=== PATIENT | male | born 1970 | race Caucasian/White ===

== ENCOUNTER 2019-10-25 15:24 | Emergency (ER) | payer BC ==
[~2019-10-25] VITALS: Ht 182.9 cm; Wt 81.7 kg
[2019-10-25] MEDS ORDERED: PREGABALIN100 MG PO (15:45)
[2019-10-25] MEDS ORDERED: Norco 7.5-3251 EACH PO (17:30)
[2019-10-25] MEDS ORDERED: CEPH500 PO (17:30)
== END 2019-10-25 17:50 | disposition home or self-care (01) ==
LOC: ER 15:24
DX: S66.121A Laceration of flexor muscle, fascia and tendon of left index finger at wrist and hand level, initial encounter (principal); Z23 Encounter for immunization; W27.8XXA Contact with other nonpowered hand tool, initial encounter
CPT/HCPCS: 12032; 73130; 90471; 90714; 96365-59; 96375-59; 99283-25; J0690; J1170; L3917

== ENCOUNTER → 2021-04-20 | Outpatient (CLI) | payer BC ==
[~2021-04-20] MED LIST: CEPH500 PO; Norco 7.5-3251 EACH PO; PREGABALIN100 MG PO
[2021-04-20 08:31] LABS: BASOPHILS ABSOLUTE AUTO 0.08 K/mm3 (0.00-0.23); BASOPHILS PERCENT AUTO 1 % (0-2); EOSINOPHILS ABSOLUTE AUTO 0.44 K/mm3 (0.00-0.68); EOSINOPHILS PERCENT AUTO 5 % (0-6); Hematocrit 41.7 % (37.0-53.0); Hemoglobin 14.4 g/dL (13.5-17.5); IMMATURE GRAN ABSOLUTE AUTO 0.03 K/mm3 (0.00-0.10); IMMATURE GRAN PERCENT AUTO 0 % (0-1); LYMPHOCYTES ABSOLUTE AUTO 1.51 K/mm3 (0.84-5.20); LYMPHOCYTES PERCENT AUTO 18 % (21-46); MONOCYTES ABSOLUTE AUTO 0.67 K/mm3 (0.16-1.47); MONOCYTES PERCENT AUTO 8 % (4-13); Mean Corpuscular HGB 31.6 pg (26.0-34.0); Mean Corpuscular HGB Conc 34.5 g/dL (31.5-36.5); Mean Corpuscular Volume 92 fL (80-100); NEUTROPHILS ABSOLUTE AUTO 5.62 K/mm3 (1.96-9.15); NEUTROPHILS PERCENT AUTO 67 % (41-73); Platelet Count 238 K/mm3 (150-400); RDW Coefficient Variation 12.2 % (11.7-14.2); RDW Standard Deviation 40.8 fL (35.1-46.3); Red Blood Cell Count 4.55 M/mm3 (4.30-5.90); White Blood Cell Count 8.35 K/mm3 (4.00-11.30)
[2021-04-20 08:39] LABS: Alanine Aminotransfer (ALT/SGP 41 U/L (12-78); Albumin, Blood 4.1 g/dL (3.4-5.0); Albumin/Globulin Ratio 1.3 (0.8-1.8); Alk Phos 113 U/L (40-126); Anion Gap 10 mmol/L (6-16); Aspartate Aminotrans (AST/SGOT 21 U/L (12-37); Bilirubin, Total 0.4 mg/dL (0.1-1.0); Blood Urea Nitrogen 14 mg/dL (8-24); Bun/Creatinine Ratio 17.3 (12.0-20.0); CO2, Blood 28 mmol/L (21-32); Calcium, Blood 9.3 mg/dL (8.5-10.1); Chloride, Blood 104 mmol/L (98-108); Creatinine, Blood 0.81 mg/dL (0.60-1.20); Globulin, Blood 3.1 g/dL (2.2-4.0); Glomerular Filtration Rate >60 (60-); Glucose, Blood 92 mg/dL (70-99); Magnesium, Blood 1.9 mg/dL (1.6-2.4); Potassium, Blood 4.4 mmol/L (3.5-5.5); Sodium, Blood 142 mmol/L (136-145); Total Protein, Blood 7.2 g/dL (6.4-8.2)
[2021-04-20 09:24] LABS: CPK Creatine Kinase 67 U/L (39-308)
[2021-04-20 09:29] LABS: Creatine Kinase MB <1.0 ng/mL (0.0-3.6); Creatine Kinase MB Index Unable to Calculate (0.0-4.0)
[2021-04-22 13:08] LABS: ANA DIRECT Negative (Negative); ANTI-DNA (DS) AB QN 7 IU/mL (0-9); RNP ANTIBODIES 0.2 AI (0.0-0.9); SJOGREN'S ANTI-SS-A <0.2 AI (0.0-0.9); SJOGREN'S ANTI-SS-B <0.2 AI (0.0-0.9); SMITH ANTIBODIES 0.4 AI (0.0-0.9)
== END | disposition home or self-care (01) ==
LOC: LAB SHORT 08:18
PROVIDERS: Physician Assistant
DX: M25.551 Pain in right hip (principal)
CPT/HCPCS: 80053; 82550; 82553; 83735; 85025; 85651; 86225; 86235

== ENCOUNTER → 2021-06-09 | Outpatient (CLI) | payer BC | END | disposition home or self-care (01) | LOC: LAB SHORT 11:20 | DX: D22.5 Melanocytic nevi of trunk (principal) | CPT/HCPCS: 88305 ==

== ENCOUNTER → 2021-09-07 | Outpatient (CLI) | payer BC ==
[2021-09-07 14:44] LABS: Calcium, Urine 21.2 mg/dL (< 17.5)
[2021-09-07 14:51] LABS: Creatinine Urine 99.5 mg/dL (27.00-270.00)
== END | disposition home or self-care (01) ==
LOC: LAB 09:26 → LAB SHORT 09:26
PROVIDERS: Internal Medicine Endocrinology, Diabetes & Metabolism
DX: M81.0 Age-related osteoporosis without current pathological fracture (principal)
CPT/HCPCS: 81050; 82340; 82570

== ENCOUNTER → 2022-08-14 | Outpatient (CLI) | payer BC | END | disposition home or self-care (01) | LOC: LAB 15:35 → LAB SHORT 15:35 | DX: N50.819 Testicular pain, unspecified (principal) | CPT/HCPCS: 87086 ==

== ENCOUNTER 2022-11-21 13:36 | Observation (INO) | payer BC ==
[~2022-11-21] VITALS: Ht 182.9 cm; Wt 84.0 kg
[2022-11-21 14:11] LABS: BASOPHILS ABSOLUTE AUTO 0.07 K/mm3 (0.00-0.23); BASOPHILS PERCENT AUTO 1 % (0-2); EOSINOPHILS ABSOLUTE AUTO 0.28 K/mm3 (0.00-0.68); EOSINOPHILS PERCENT AUTO 4 % (0-6); Hematocrit 40.1 % (37.0-53.0); Hemoglobin 13.9 g/dL (13.5-17.5); IMMATURE GRAN ABSOLUTE AUTO 0.07 K/mm3 (0.00-0.10); IMMATURE GRAN PERCENT AUTO 1 % (0-1); LYMPHOCYTES ABSOLUTE AUTO 1.23 K/mm3 (0.84-5.20); LYMPHOCYTES PERCENT AUTO 16 % (21-46); MONOCYTES ABSOLUTE AUTO 0.48 K/mm3 (0.16-1.47); MONOCYTES PERCENT AUTO 6 % (4-13); Mean Corpuscular HGB 31.5 pg (26.0-34.0); Mean Corpuscular HGB Conc 34.7 g/dL (31.5-36.5); Mean Corpuscular Volume 91 fL (80-100); Mean Platelet Volume 11.7 fL (9.1-12.4); NEUTROPHILS ABSOLUTE AUTO 5.58 K/mm3 (1.96-9.15); NEUTROPHILS PERCENT AUTO 72 % (41-73); Platelet Count 251 K/mm3 (150-400); RDW Coefficient Variation 11.7 % (11.7-14.2); RDW Standard Deviation 38.8 fL (35.1-46.3); Red Blood Cell Count 4.41 M/mm3 (4.30-5.90); White Blood Cell Count 7.71 K/mm3 (4.00-11.30)
[2022-11-21 14:27] LABS: Albumin, Blood 3.5 g/dL (3.4-5.0); Bilirubin, Total 0.4 mg/dL (0.1-1.0); Bun/Creatinine Ratio 8.3 (12.0-20.0); Calcium, Blood 8.7 mg/dL (8.5-10.1); Creatinine, Blood 1.21 mg/dL (0.60-1.20); Globulin, Blood 3.4 g/dL (2.2-4.0); Potassium, Blood 4.2 mmol/L (3.5-5.5); Total Protein, Blood 6.9 g/dL (6.4-8.2)
[2022-11-21] MEDS ORDERED: MIRAPEX ER0.75 MG PO (14:28)
[2022-11-21 18:16] VITALS: BP 130/83
--- NOTE | 2022-11-21 18:27 | NUR ---
ADMISSION: PT ADMIT TO MEDICAL FLOOR @1805 INDEPENDENTLY. PT HAS ONE BAG IV NS RUNNING @125/HR. PT VERY PLEASANT AND COOPERATIVE WITH CARE. NO ACUTE ISSUES BESIDES GI ISSUES. LUNGS CLEAR. VSS. IV IN LAC RUNNING W/O COMPLICATIONS. PT CURRENTLY HAS REGULAR DIET IN PLACE. WILL CALL HOSPITALIST TO VERIFY THIS ORDER DUE TO POSSIBLE SCOPE TOMORROW. PT INDEPENDENT IN ROOM. NO C/O PAIN OR N/V. CALL LIGHT IN REACH. WILL CONTINUE TO MONITOR.
--- NOTE | 2022-11-21 22:29 | NUR ---
PT REFUSES FURTHER IV FLUID INFUSION, CITING INCONVENIENCE OF CONSTANTLY BEING UP TO USE RESTROOM AND HAVING TO DEAL WITH IT. DISCUSSION AND EDUCATION REGARDING NEED FOR FLUID ADMINISTRATION. PT ELECTS TO TAKE PO FLUIDS AND PROMISES TO UPKEEP FLUID INTAKE OVER COURSE OF NIGHT. CONTINUED TO REFUSE IV FLUID ADMINISTRATION. WILL DC, PUSH PO FLUIDS, AND CONTINUE TO MONITOR.
[2022-11-22] VITALS (28 sets, daily range): BP systolic 89–137; BP diastolic 46–80
[2022-11-22 00:04] LABS: Campylobacter Sp Not Detected (NOT DETECT)
[2022-11-22 00:05] LABS: Adenovirus F 40/41 Not Detected (NOT DETECT); Astrovirus Not Detected (NOT DETECT); Cryptosporidium Not Detected (NOT DETECT); Cyclospora Cayetanensis Not Detected (NOT DETECT); E. Coli O157 Not Detected (NOT DETECT); Entamoeba Histolytica Not Detected (NOT DETECT); Enteroaggregative E. coli-EAEC Not Detected (NOT DETECT); Enteropathogenic E. coli-EPEC Not Detected (NOT DETECT); Enterotoxigenic E. coli-ETEC Not Detected (NOT DETECT); Giardia Lamblia Not Detected (NOT DETECT); Norovirus GI/GII Not Detected (NOT DETECT); Plesiomonas Shigelloides Not Detected (NOT DETECT); Rotavirus A Not Detected (NOT DETECT); Salmonella Sp Not Detected (NOT DETECT); Sapovirus Not Detected (NOT DETECT); Shiga Toxin-prod E. coli-STEC Not Detected (NOT DETECT); Shigella/Enteroin E. coli-EIEC Not Detected (NOT DETECT); Vibrio Cholerae Not Detected (NOT DETECT); Vibrio Sp Not Detected (NOT DETECT); Yersinia Enterocolitica Not Detected (NOT DETECT)
--- NOTE | 2022-11-22 03:46 | NUR ---
SHIFT SUMMARY. PT IS AOX4, PLEASANT, COOPERATIVE WITH CARE, INDEPENDENT WITHIN ROOM. PT HAS HAD VERY GOOD PO FLUID INTAKE, MORE THAN 64 OZ OF WATER NOT INCLUDING APPLE JUICE WITH MIRALAX. NO BM SINCE TAKING MIRALAX PER PT BUT HAS BEEN HAVING FREQUENT URINATION. NO COMPLAINTS OF PAIN. EDUCATED ON LAXATIVES, NEED FOR PO FLUID INTAKE, INDICATION FOR COLONOSCOPY, ETC. CALLS APPROPRIATELY. BED LOCKED IN LOWEST POSITION. CALL LIGHT LEFT WITHIN REACH.
[2022-11-22 05:31] LABS: International Normalized Ratio 1.07; Prothrombin Time Results 11.2 Sec (9.7-11.5)
[2022-11-22 06:01] LABS: Albumin, Blood 3.6 g/dL (3.4-5.0); Albumin/Globulin Ratio 1.1 (0.8-1.8); Bilirubin, Total 0.5 mg/dL (0.1-1.0); Bun/Creatinine Ratio 9.7 (12.0-20.0); Calcium, Blood 9.2 mg/dL (8.5-10.1); Creatinine, Blood 0.93 mg/dL (0.60-1.20); Globulin, Blood 3.4 g/dL (2.2-4.0); Potassium, Blood 4.5 mmol/L (3.5-5.5)
--- NOTE | 2022-11-22 09:56 | NUR ---
Pt. is sitting up in bed and welcomes my visit. Pt. verbalized that he was being prepped for a colonoscopy. Nurse arrived to take him to procedure. pt. verbalized gratitude for the brief spiritual care visit.
--- NOTE | 2022-11-22 15:31 | NUR ---
YAW FROM DAY SURGERY CALLED @1525 TO CHECK ON PT BOWEL PREP AND ASSESS COLOR AND CLARITY OF BM. PER DAY SURGERY, LIKELY BE UP TO TRANSPORT WITHIN THE HOUR.
--- NOTE | 2022-11-22 16:42 | NUR ---
18G IV SITE LAC PATENT.
--- NOTE | 2022-11-22 17:04 | NUR ---
SHIFT SUMMARY: PT A&O X4. PT PLEASANT AND COOPERATIVE WITH ALL CARE. PT FINISHED BOWEL PREP AROUND 1030 THIS AM WITH FINAL BM SHOWING YELLOW/LIGHT GREEN IN COLOR WITH NO SOLID PARTICLES PRESENT. PT DOWN FOR SURGERY @1630. PT INDEPENDENT IN ROOM W/NO COMPLAINTS OF N/V. SMALL AMOUNT OF ABD PAIN THIS AM PRIOR TO BOWEL PREP. SCHEDULED ZOFRAN GIVEN 20 MINUTES PRIOR TO PREP.
--- NOTE | 2022-11-22 17:07 | NUR ---
PT ACCESSED RECORDS VIA PERSONAL CELL PHONE. PT CONCERNED DUE TO FACT THAT SOME PARTS OF A NOTE UPON ARRIVAL IN ER WERE NOT ACCURATE. PT STATED HE WAS HAVING VERY FREQUENT BM'S, NOT URINATION. PT ALSO STATED HE STARTED HAVING BLOOD IN STOOL 2 MONTHS AGO BUT BLOOD STARTED TO BECOME WORSE AND MORE SEVERE IN THE PAST FEW DAYS. STATED TO PT THIS RN WOULD MAKE ACCURATE NOTE.
--- NOTE | 2022-11-22 17:32 | NUR ---
11/22/22 1732 Kary Isaac HISTORY, CHART, MEDICATIONS AND ALLERGIES REVIEWED BEFORE START OF PROCEDURE. PATIENT CONFIRMS NPO STATUS AND AGREES WITH SCHEDULED PROCEDURE. 3-LEAD EKG REVIEWED WITH PHYSICIAN PRIOR TO START OF PROCEDURE. MONITOR INTACT WITH CONTINUOUS PULSE OXIMETRY,CAPNOGRAPHY, 3-LEAD EKG, INTERMITTENT BP. SUPPLEMENTAL O2 TO BE TITRATED THROUGHOUT PROCEDURE TO MAINTAIN O2 SATURATION ABOVE 90%. PATIENT DETERMINED TO BE ASA APPROPRIATE FOR PROPOFOL SEDATION PRIOR TO START OF PROCEDURE BY DR. CHI.
[2022-11-22 21:18] LABS: Campylobacter Sp Not Detected (NOT DETECT); Enteroaggregative E. coli-EAEC Not Detected (NOT DETECT); Enteropathogenic E. coli-EPEC Not Detected (NOT DETECT); Enterotoxigenic E. coli-ETEC Not Detected (NOT DETECT); Plesiomonas Shigelloides Not Detected (NOT DETECT); Salmonella Sp Not Detected (NOT DETECT); Vibrio Cholerae Not Detected (NOT DETECT); Vibrio Sp Not Detected (NOT DETECT); Yersinia Enterocolitica Not Detected (NOT DETECT)
[2022-11-22 21:19] LABS: Adenovirus F 40/41 Not Detected (NOT DETECT); Astrovirus Not Detected (NOT DETECT); Cryptosporidium Not Detected (NOT DETECT); Cyclospora Cayetanensis Not Detected (NOT DETECT); E. Coli O157 Not Detected (NOT DETECT); Entamoeba Histolytica Not Detected (NOT DETECT); Giardia Lamblia Not Detected (NOT DETECT); Norovirus GI/GII Not Detected (NOT DETECT); Rotavirus A Not Detected (NOT DETECT); Sapovirus Not Detected (NOT DETECT); Shiga Toxin-prod E. coli-STEC Not Detected (NOT DETECT); Shigella/Enteroin E. coli-EIEC Not Detected (NOT DETECT)
== END 2022-11-22 21:38 | disposition home or self-care (01) ==
LOC: ER 13:36 → MEDS 13:37
PROVIDERS: Emergency Medicine; Internal Medicine Gastroenterology; ADMIT Hospitalist
PROC: 0DBM8ZX Excision of Descending Colon, Via Natural or Artificial Opening Endoscopic, Diagnostic (ICD-10-PCS; principal; 2022-11-21)
PROC: 0DBK8ZX Excision of Ascending Colon, Via Natural or Artificial Opening Endoscopic, Diagnostic (ICD-10-PCS; principal; 2022-11-21)
PROC: 0DBN8ZX Excision of Sigmoid Colon, Via Natural or Artificial Opening Endoscopic, Diagnostic (ICD-10-PCS; principal; 2022-11-21)
PROC: 0DBP8ZX Excision of Rectum, Via Natural or Artificial Opening Endoscopic, Diagnostic (ICD-10-PCS; principal; 2022-11-21)
PROC: 0DBL8ZX Excision of Transverse Colon, Via Natural or Artificial Opening Endoscopic, Diagnostic (ICD-10-PCS; principal; 2022-11-21)
PROC: 0DBH8ZX Excision of Cecum, Via Natural or Artificial Opening Endoscopic, Diagnostic (ICD-10-PCS; principal; 2022-11-21)
DX: K51.50 Left sided colitis without complications (principal); K64.4 Residual hemorrhoidal skin tags; G25.81 Restless legs syndrome; M79.7 Fibromyalgia; E86.0 Dehydration; M81.0 Age-related osteoporosis without current pathological fracture
CPT/HCPCS: 36415; 80053; 83993; 85025; 85610; 86140; 86850; 86900; 86901; 87015; 87045; 87046; 87177; 87205; 87209; 87507; 87899; 88305; 96374; 99285; A9270; G0378; J2250; J2405; J2704; J7030; J7120

== ENCOUNTER → 2022-11-28 | Outpatient (CLI) | payer BC ==
[~2022-11-28] MED LIST changes: +MIRAPEX ER0.75 MG PO
== END | disposition home or self-care (01) ==
LOC: LAB 05:40 → LAB SHORT 05:40
DX: K51.50 Left sided colitis without complications (principal)
CPT/HCPCS: 83993

== ENCOUNTER 2023-05-10 08:05 | Day surgery (SDC) | payer BC ==
[~2023-05-10] VITALS: Ht 182.9 cm; Wt 81.5 kg
[2023-05-10] MEDS ORDERED: APRISO0.375 GM (08:45)
[2023-05-10] MEDS ORDERED: FOLIC ACID0.4 MG (08:46)
[2023-05-10 10:59] VITALS: BP 116/75
== END 2023-05-10 10:50 | disposition home or self-care (01) ==
LOC: ORSCSDS 08:05
PROVIDERS: Internal Medicine Gastroenterology
PROC: 0DBH8ZX Excision of Cecum, Via Natural or Artificial Opening Endoscopic, Diagnostic (ICD-10-PCS; principal; 2023-05-10 09:30)
PROC: 0DBL8ZX Excision of Transverse Colon, Via Natural or Artificial Opening Endoscopic, Diagnostic (ICD-10-PCS; principal; 2023-05-10 09:30)
PROC: 0DBN8ZX Excision of Sigmoid Colon, Via Natural or Artificial Opening Endoscopic, Diagnostic (ICD-10-PCS; principal; 2023-05-10 09:30)
PROC: 0DBM8ZX Excision of Descending Colon, Via Natural or Artificial Opening Endoscopic, Diagnostic (ICD-10-PCS; principal; 2023-05-10 09:30)
DX: R19.4 Change in bowel habit (principal); D12.4 Benign neoplasm of descending colon; K51.40 Inflammatory polyps of colon without complications; K52.9 Noninfective gastroenteritis and colitis, unspecified; Z79.899 Other long term (current) drug therapy
CPT/HCPCS: 88305; J2704; J7120